=== PATIENT | male | born 1955 | race Caucasian/White ===

== ENCOUNTER 2023-11-28 09:39 | Outpatient (CLI) | payer MEDICARE, OTHER | END 2023-11-28 09:40 | disposition home or self-care (01) | LOC: LAB.N 09:39 | PROVIDERS: ATTEND Physician Assistant Medical | DX: J02.9 Acute pharyngitis, unspecified (principal) ==

== ENCOUNTER 2024-06-16 10:17 | Outpatient (CLI) | payer MEDICARE, OTHER | END 2024-06-16 10:18 | disposition home or self-care (01) | LOC: LAB 10:17 | PROVIDERS: ATTEND Urology | DX: R97.20 Elevated prostate specific antigen [PSA] (principal) | CPT/HCPCS: 36415; 84153 ==